=== PATIENT | male | born 1970 | race Caucasian/White ===

== ENCOUNTER 2024-04-06 11:27 | Emergency (ER) | payer MEDICAID, SELFPAY ==
[2024-04-06 11:30] VITALS: BP 176/92; PULSE 92; RESP 12; TEMP 37.1; O2SAT 97
--- NOTE | 2024-04-06 12:03 | W.ED.GENAD ---
Discharge Plan Disposition Patient Disposition: Home Discharge Details Clinical Impression: Allergic reaction to bee sting Primary Care Provider: Unknown,Unknown ED Provider: Oc Martinez Home Meds and New Rx's Prescriptions: New epinephrine [EpiPen 2-Lázaro] 0.3 mg/0.3 mL auto-injector 0.3 mg IM Q5-15M PRN (Reason: anaphylaxis) Qty: 2 2RF Rx Instructions: do not exceed 3 doses per episode prednisone 20 mg tablet 40 mg PO DAILY Qty: 8 0RF Discharge Instructions Instructions: Insect Bites and Stings ED Additional Instructions: At this time your bee sting episode sounds like it was an allergic reaction and even possibly bordering on anaphylactic reaction. It is very important that you carry an EpiPen with you for any further bee sting reactions that you have please use the EpiPen as directed on packaging. If you have any new or significant worsening of symptoms feel free to return the emergency department for reassessment otherwise follow-up with primary care provider as needed You may also use [id number] Benadryl or Zyrtec as needed for itching Referrals: Primary Care Provider [Outside] Discharge Data Discharge Date/Time-TO BE ENTERED AT DEPARTURE: 04/06/24 13:10 HPI General Mode of arrival: ambulatory. Date/Time Provider Initiated Documentation: 04/06/24 11:37. Limitations to Documentation: no limitations. Information obtained by: patient and RN notes reviewed. History of Present Illness 53 year old M presents to the emergency department with the chief complaint of Insect sting left arm, described as moderate, Patient started experiencing this day(s) (1) and it has been constant. No relieving factors improve symptom(s), No exacerbating factors reported . Patient did receive the following treatments prior to arrival, other (Benadryl) Related Data Home Medications ?Medication ?Instructions ?Recorded ?Confirmed epinephrine 0.3 mg/0.3 mL 0.3 mg (0.3 mL) IM Q5-15M PRN 04/06/24 injection, auto-injector (EpiPen anaphylaxis #2 ea 2-Lázaro) prednisone 20 mg tablet 40 mg (2 x 20 mg) PO DAILY #8 tabs 04/06/24 Previous Rx's ?Medication ?Instructions ?Recorded epinephrine 0.3 mg/0.3 mL 0.3 mg (0.3 mL) IM Q5-15M PRN 04/06/24 injection, auto-injector (EpiPen anaphylaxis #2 ea 2-Lázaro) prednisone 20 mg tablet 40 mg (2 x 20 mg) PO DAILY #8 tabs 04/06/24 Allergies Allergy/AdvReac Type Severity Reaction Status Date / Time No Known Allergies Allergy Unverified 04/06/24 11:34 General Stated Complaint: InsectBite WAGNER: 4 Review of Systems Constitutional Constitutional: Denies fever(s) and Denies malaise ENT Ears, Nose, Mouth, and Throat: Reports lip swelling Cardiovascular Cardiovascular: Denies chest pain, Denies syncope and Denies dyspnea Respiratory Respiratory: Denies dyspnea Integumentary/Breasts Skin/Breast: Reports as per HPI, Reports pruritus, Reports erythema, Reports rash and Reports skin swelling Neurologic Neurologic: Denies syncope Allergic/Immunologic Allergic/Immunologic: Reports lip swelling Exam Const General: cooperative and comfortable Orientation: alert and awake HENMT Head: normal to inspection, normocephalic and atraumatic General nose exam: external nose normal Face and sinus: normal facial exam Mouth: oral mucosae normal, lip normal and no audible dysphonia Resp Effort & Inspection: normal respiratory effort and able to speak in complete sentences Extrem General: normal exam except as noted Left upper extremity: elbow/forearm Details: abnormal to inspection Details: erythema and other (Insect sting milton to proximal forearm) and swelling Course Vital Signs Vital signs: Vital Signs Temperature 37.1 C 04/06/24 11:30 Pulse 92 H 04/06/24 11:30 Respiratory Rate 12 04/06/24 11:30 Blood Pressure 176/92 H 04/06/24 11:30 Pulse Oximetry 97 04/06/24 11:30 Temperature 37.1 C 04/06/24 11:30 Temperature Source Skin 04/06/24 11:30 Pulse 92 H 04/06/24 11:30 Respiratory Rate 12 04/06/24 11:30 Respiratory Effort Normal, Non-Labored 04/06/24 11:50 Blood Pressure 176/92 H 04/06/24 11:30 Blood Pressure Position Sitting 04/06/24 11:30 Pulse Oximetry 97 04/06/24 11:30 Oxygen Delivery Method Room Air 04/06/24 11:30 Oxygen Flow Rate 0 04/06/24 11:30 Pain Level 2 04/06/24 11:30 Medical Decision Making Patient presenting to the emergency department for chief complaint of hornet sting to left forearm. Patient reports yesterday he was stung in the proximal left forearm by an unknown and different type of hornet which caused an allergic reaction. Patient reports initially it was just pain and discomfort around sting bite but then later he developed hives all over his body, had some sensation of swelling to his upper lip and some chest tightness. Patient took Benadryl and over the next couple hours symptoms did seem to subside but then today noted some swelling redness and itching that was significant around the area he was stung. Physical exam shows a left proximal forearm sting milton with significant erythema and what appears to be almost like a large hive to the entire forearm. Given timing and onset I do not think this is a cellulitis but it is at least considered but feel that is more of a acute allergic reaction. I am concerned for some of the components patient reported that he could have ordered on anaphylactic type reaction yesterday. Will place patient on steroids and Zyrtec to help with the local reaction and have patient monitor return for new or worsening of symptoms. Will prescribe patient EpiPen due to concern of anaphylactic type reaction. After discussion of diagnosis and plan of care patient has no further needs, questions, or concerns and states clear understanding to return to the emergency department for any worsening symptoms. This documentation was generated using [employer] dictation system, please disregard any oddities of phrase or misspellings. Quality:SDOH Health Related Social Needs: No Data to Display PFSH All Active Problems (Updated 04/06/24 @ 12:10 by Oc Martinez NP) Allergic reaction to bee sting (Acute) Social History Smoking risk assessment performed?: No
[2024-04-06] MEDS: predniSONE 20 MG TAB 60 MG PO (12:13)
[2024-04-06] MEDS: Cetirizine 10 MG TAB PO (12:17)
[2024-04-06 13:09] VITALS: BP 176/92; PULSE 92; RESP 12; TEMP 37.1; O2SAT 97
== END 2024-04-06 13:10 | disposition home or self-care (01) ==
PROVIDERS: Emergency Provider Nurse Practitioner Family
DX: T63.451A Toxic effect of venom of hornets, accidental (unintentional), initial encounter (principal); X58.XXXA Exposure to other specified factors, initial encounter
CPT/HCPCS: 99283; J7512